=== PATIENT | female | born 1985 | race African-American/Black ===

== ENCOUNTER 2020-08-12 17:15 | Emergency (ER) | payer BC ==
[~2020-08-12] VITALS: Ht 157.5 cm; Wt 100.0 kg
[~2020-08-12 17:15] MED LIST: ADIPEX-P37.5 M1 PO; ALEVE220 MG OR; CIPROFLOXACN500 MG PO; FLEXERIL PO; LORTAB 5 OR; MOTRIN800 MG PO; NAPROSYN500 MG OR; NAPROSYN500 MG PO; NO HOME MEDS; OCELLA1 TAB OR; PREVACID30 M3 PO; SPRINTEC 2828 DAY OR; TRAMADOL HYDROC50 MG PO; ULTRAM50 M1 PO; ZOFRAN ODT4 MG OR; [UNRECOGNIZED DRUG - REMARK]
[2020-08-12] MEDS ORDERED: LISINOP/HCTZ1 TA1 PO (17:34)
[2020-08-12 17:55] VITALS: BP 126/66
== END 2020-08-12 17:55 | disposition home or self-care (01) | DRG 951 ==
LOC: ED 17:15
DX: Z03.823 Encounter for observation for suspected inserted (injected) foreign body ruled out (principal); I10 Essential (primary) hypertension

== ENCOUNTER 2022-03-22 07:34 | Emergency (ER) | payer SELFPAY ==
[~2022-03-22] VITALS: Ht 157.5 cm; Wt 90.9 kg
[2022-03-22] VITALS (10 sets, daily range): BP systolic 121–141; BP diastolic 73–89
[~2022-03-22 07:34] MED LIST changes: +LISINOP/HCTZ1 TA1 PO
[2022-03-22 10:07] LABS: URINE BLOOD DIPSTICK LARGE (NEGATIVE); URINE GLUCOSE - DIPSTICK NEGATIVE (NEGATIVE); URINE KETONE NEGATIVE (NEGATIVE); URINE LEUK ESTERASE NEGATIVE (NEGATIVE); URINE PH 5.5 (4.5-8.0); URINE PROTEIN - DIPSTICK 100 mg/dL (NEG-TRACE); URINE SPECIFIC GRAVITY 1.025; URINE UROBILINOGEN - DIPSTICK 0.2 E.U./dL (0.2)
[2022-03-22 10:08] LABS: URINE BILIRUBIN - DIPSTICK SMALL (NEGATIVE); URINE COLOR RED; URINE NITRITE - DIPSTICK NEGATIVE (Negative)
[2022-03-22 10:09] LABS: URINE RBC >100 RBC/hpf (0-5)
[2022-03-22] MEDS ORDERED: METRONIDAZOLE500 MG PO (10:52)
== END 2022-03-22 11:09 | disposition home or self-care (01) | DRG 696 ==
LOC: ED 07:34
PROVIDERS: Internal Medicine
DX: R30.0 Dysuria (principal); I10 Essential (primary) hypertension